=== PATIENT | female | born 1950 | race Hispanic/Latino ===

== ENCOUNTER 2022-07-30 11:01 | Outpatient (CLI) | payer OTHER, MEDICAID | END 2022-07-30 11:02 | disposition home or self-care (01) | LOC: TBSIIMAG 11:01 | PROVIDERS: ATTEND Neurological Surgery | DX: S22.008A Other fracture of unspecified thoracic vertebra, initial encounter for closed fracture (principal); S32.021A Stable burst fracture of second lumbar vertebra, initial encounter for closed fracture | CPT/HCPCS: 72100 ==